=== PATIENT | female | born 1980 | race Caucasian/White ===

== ENCOUNTER 2024-02-20 13:57 | Emergency (ER) | payer SELFPAY ==
[~2024-02-20] VITALS: Ht 162.6 cm; Wt 60.5 kg
[~2024-02-20 13:57] MED LIST: ATENOLOL25 MG PO; FLEXERIL 1010 MG/TAB PO; IMITREX100 MG PO; KLONOPIN 0.5MG0.5 MG PO; LYRICA75 MG PO; MAXALT5 MG PO; NORCO 325 MG-7.1 TA1 PO; QUALITY CHOICE1 T27 PO
[2024-02-20] MEDS ORDERED: NS 1,000 ML IV SCH (14:30)
[2024-02-20] MEDS ORDERED: Ketorolac 30 MG/ML VIAL IV ONE (14:30)
[2024-02-20] MEDS ORDERED: diphenhydrAMINE 50 MG/ML 1 ML VIAL IV ONE (14:30)
[2024-02-20 14:46] LABS: BASO # 0.01 K/mm3 (0.02-0.10); EOS # 0.01 K/mm3 (0.04-0.40); EOS % 0.1 % (1.0-5.0); HEMATOCRIT 41.1 % (37.0-47.0); HEMOGLOBIN 13.5 g/dL (12.5-16.0); LYMPH# 0.74 K/mm3 (1.50-4.00); MEAN CELL VOLUME 90 fl (78-100); MEAN CORPUSCULAR HEMOGLOBIN 29 pg (27-31); MEAN CORPUSCULAR HGB CONC 33 g/dL (33-37); MEAN PLATELET VOLUME 9.4 fl (7.4-10.4); MONO # 0.31 K/mm3 (0.20-0.80); NEU # 8.48 K/mm3 (1.40-6.50); PLATELET COUNT 241 K/mm3 (130-400); RED BLOOD COUNT 4.59 M/mm3 (4.10-5.30); RED CELL DISTRIBUTION WIDTH 13.3 % (11.5-14.5); WHITE BLOOD COUNT 9.6 K/mm3 (4.8-10.8)
[2024-02-20 14:54] LABS: ALBUMIN 4.4 g/dL (3.5-5.0)
[2024-02-20 14:56] LABS: CALCIUM 9.6 mg/dL (8.3-10.5)
[2024-02-20 14:59] LABS: TOTAL BILIRUBIN 0.7 mg/dL (0.2-1.2)
[2024-02-20] MEDS ORDERED: droPERidol 2.5 MG/ML 2 ML VIAL IV ONE (15:15)
[2024-02-20] MEDS ORDERED: Haloperidol Lactate 5 MG/ML VIAL IV ONE (15:15)
[2024-02-20 16:02] VITALS: BP 106/65
== END 2024-02-20 16:04 | disposition home or self-care (01) ==
LOC: ED 13:57
PROVIDERS: Physician Assistant
DX: G43.909 Migraine, unspecified, not intractable, without status migrainosus (principal); Z91.040 Latex allergy status
CPT/HCPCS: J0780; J1200; J1790; J1885; J7030

== ENCOUNTER → 2024-02-21 | Outpatient (CLI) | payer SELFPAY | LOC: LAB 16:32 | DX: E89.0 Postprocedural hypothyroidism (principal) ==